=== PATIENT | female | born 1990 | race Caucasian/White ===

== ENCOUNTER 2016-07-27 14:28 | Outpatient (RCR) | payer MEDICARE, MEDICAID ==
[~2016-07-27 14:28] MED LIST: ALDACTONE PO; ALDACTONE25 M1 PO; CARAFATE PO; CLOTRIMAZOLE TR10 MG MM; DIFLUCAN 100MG100 MG PO; ERGOCALCIFER50000 IU PO; GABAPENTIN PO; LIDOCAINE HC20 MG/M1 MM; LOMOTIL1 TAB PO; MAG64 110 MG-181 ECT PO; NATURE'S BLEND F1 MG PO; NEXIUM ORA40 MG/Pack PO; PHARMASSURE VI100 MG PO; POTASSIUM CHLO20 ME3 PO; PREVACID SOLUTA30 M2 SL; PRILOSEC 20MG20 MG PO; Patient's Own Medica PO; THIAMINE HCL100 M1 PO; VITAMIN B-6100 MG PO; Vitamin A PO
[2016-07-27 14:30] VITALS: BP 101/67
[2016-08-04 15:50] VITALS: BP 95/63
[2016-12-14] MEDS ORDERED: PRILOSEC 20MG20 MG PO (10:04)
[2016-12-14] MEDS ORDERED: FOLBIC RF 2 MG-1 TAB PO (10:04)
[2016-12-14] MEDS ORDERED: KLONOPIN 1MG1 MG PO (10:05)
== END 2016-10-25 | disposition home or self-care (01) ==
LOC: AMSURD 14:28
DX: K90.89 Other intestinal malabsorption (principal); E87.6 Hypokalemia
CPT/HCPCS: J1644

== ENCOUNTER → 2016-10-13 | Outpatient (CLI) | payer MEDICARE, MEDICAID ==
[~2016-10-13] MED LIST changes: +ALPRAZOLAM ER0.5 MG PO; +CIPRO500 M1 PO; +DEXTROAMPH SACC10 M1 PO; +FOLBIC RF 2 MG-1 TAB PO; +KLONOPIN 1MG1 MG PO; +KLOR-CON/EF25 MEQ PO; +SERTRALINE HYDR50 MG PO; +ZOLPIDEM TART10 MG PO
== END ==
LOC: RAD 16:22
DX: M54.5 Low back pain (principal); M51.36 Other intervertebral disc degeneration, lumbar region

== ENCOUNTER 2016-12-14 10:07 | Emergency (ER) | payer MEDICARE, MEDICAID ==
[~2016-12-14 10:07] MED LIST changes: -ALPRAZOLAM ER0.5 MG PO; -CIPRO500 M1 PO; -DEXTROAMPH SACC10 M1 PO; -KLOR-CON/EF25 MEQ PO; -SERTRALINE HYDR50 MG PO; -ZOLPIDEM TART10 MG PO
[2016-12-14] MEDS ORDERED: KLOR-CON/EF25 MEQ PO (10:08)
[2016-12-14] MEDS ORDERED: DEXTROAMPH SACC10 M1 PO (10:09)
[2016-12-14] MEDS ORDERED: SERTRALINE HYDR50 MG PO (10:09)
[2016-12-14] MEDS ORDERED: ZOLPIDEM TART10 MG PO (10:09)
[2016-12-14] MEDS ORDERED: ALPRAZOLAM ER0.5 MG PO (10:09)
[2016-12-14] MEDS ORDERED: CIPRO500 M1 PO (12:11)
== END 2016-12-14 12:21 | disposition home or self-care (01) ==
LOC: ED 10:07
DX: N20.0 Calculus of kidney (principal); N30.91 Cystitis, unspecified with hematuria
CPT/HCPCS: J1200; J1885; J2405; J7030; Q9967

== ENCOUNTER → 2017-03-11 | Outpatient (CLI) | payer MEDICARE, MEDICAID ==
[~2017-03-11] VITALS: Ht 175.3 cm; Wt 87.3 kg
[~2017-03-11] MED LIST changes: +ALPRAZOLAM ER0.5 MG PO; +CIPRO500 M1 PO; +DEXTROAMPH SACC10 M1 PO; +KLOR-CON/EF25 MEQ PO; +SERTRALINE HYDR50 MG PO; +ZOLPIDEM TART10 MG PO
[2017-03-11 15:20] VITALS: BP 97/54
[2017-03-11 15:38] VITALS: BP 97/54
[2017-03-11 16:57] VITALS: BP 83/52
== END ==
LOC: LAB 12:54 → AMSURD 12:54
DX: E87.6 Hypokalemia (principal); K90.89 Other intestinal malabsorption; I95.0 Idiopathic hypotension; Z98.84 Bariatric surgery status; R07.89 Other chest pain; E51.2 Wernicke's encephalopathy
CPT/HCPCS: J0834

== ENCOUNTER → 2017-08-23 | Outpatient (CLI) | payer MEDICARE, MEDICAID ==
[2017-03-11 16:57] VITALS: BP 83/52
== END ==
LOC: RAD 16:48
DX: M21.6X2 Other acquired deformities of left foot (principal); M19.072 Primary osteoarthritis, left ankle and foot; Z87.828 Personal history of other (healed) physical injury and trauma

== ENCOUNTER → 2017-11-01 | Outpatient (CLI) | payer MEDICARE, MEDICAID ==
[2017-03-11 16:57] VITALS: BP 83/52
[2017-11-01 14:25] LABS: BUN/CREATININE RATIO 17.3 (6.0-26.0); CALCIUM 8.4 mg/dL (8.4-10.2); POTASSIUM 3.6 mmol/L (3.6-5.0)
== END ==
LOC: LAB 14:03
PROVIDERS: Physician Assistant
DX: R19.7 Diarrhea, unspecified (principal); R07.89 Other chest pain; K90.89 Other intestinal malabsorption; E87.6 Hypokalemia; Z98.84 Bariatric surgery status

== ENCOUNTER 2017-11-05 16:23 | Emergency (ER) | payer MEDICARE, MEDICAID ==
[~2017-11-05] VITALS: Ht 172.7 cm; Wt 96.4 kg
[2017-11-05] MEDS ORDERED: AMPHETAMINE SAL20 M1 PO (16:32)
[2017-11-05] MEDS ORDERED: VENLAFAXINE H37.5 M4 PO (16:32)
[2017-11-05 17:21] LABS: EOS % 0.2 % (1.0-5.0); HEMATOCRIT 40.6 % (37.0-47.0); LYMPH# 1.9 (1.50-4.00); MEAN CELL VOLUME 101 fl (78-100); MEAN CORPUSCULAR HEMOGLOBIN 32 pg (27-31); MEAN CORPUSCULAR HGB CONC 32 g/dL (33-37); MEAN PLATELET VOLUME 9.9 fl (7.4-10.4); MONO # 0.3 (0.20-0.80); NEU # 3.1 (1.40-6.50); PLATELET COUNT 233 K/mm3 (130-400); RED BLOOD COUNT 4.02 M/mm3 (4.10-5.30); RED CELL DISTRIBUTION WIDTH 13.7 % (11.5-14.5); WHITE BLOOD COUNT 5.4 K/mm3 (4.8-10.8)
[2017-11-05 17:36] LABS: ALBUMIN 3.6 g/dL (3.5-5.0); BUN/CREATININE RATIO 19.5 (6.0-26.0); CALCIUM 8.6 mg/dL (8.4-10.2); POTASSIUM 3.9 mmol/L (3.6-5.0); TOTAL PROTEIN 7.3 g/dL (6.3-8.2)
[2017-11-05 18:26] LABS: URINE APPEARANCE HAZY; URINE BILIRUBIN NEGATIVE (NEGATIVE); URINE BLOOD NEGATIVE (NEGATIVE); URINE COLOR YELLOW; URINE GLUCOSE NEGATIVE (NEGATIVE); URINE KETONE NEGATIVE (NEGATIVE); URINE LEUKOCYTE ESTERASE NEGATIVE (NEGATIVE); URINE NITRATE NEGATIVE (NEGATIVE); URINE PROTEIN(semi-quant) NEGATIVE (NEGATIVE); URINE UROBILINOGEN NORMAL (NORMAL); URINE WBC 0-1 /hpf (0-3)
[2017-11-05 19:03] VITALS: BP 120/86
== END 2017-11-05 18:56 | disposition home or self-care (01) ==
LOC: ED 16:23
PROVIDERS: Physician Assistant
DX: R11.2 Nausea with vomiting, unspecified (principal); K90.9 Intestinal malabsorption, unspecified; Z98.84 Bariatric surgery status; F17.200 Nicotine dependence, unspecified, uncomplicated

== ENCOUNTER → 2017-11-18 | Outpatient (CLI) | payer MEDICARE, MEDICAID ==
[2017-11-05 19:03] VITALS: BP 120/86
[~2017-11-18] MED LIST changes: +AMPHETAMINE SAL20 M1 PO; +VENLAFAXINE H37.5 M4 PO
== END ==
LOC: LAB 13:03
DX: K90.89 Other intestinal malabsorption (principal); E87.6 Hypokalemia; Z98.84 Bariatric surgery status

== ENCOUNTER 2017-12-29 14:37 | Emergency (ER) | payer MEDICARE, MEDICAID ==
[~2017-12-29] VITALS: Ht 172.7 cm; Wt 97.7 kg
[2017-12-29] MEDS ORDERED: GOOD NEIGHBOR P1 T32 PO (14:50)
[2017-12-29] MEDS ORDERED: B COMPLEX1 EACH (14:51)
[2017-12-29 15:44] LABS: EOS % 0.6 % (1.0-5.0); HEMATOCRIT 37.2 % (37.0-47.0); HEMOGLOBIN 12.5 g/dL (12.5-16.0); MEAN CELL VOLUME 99 fl (78-100); MEAN CORPUSCULAR HEMOGLOBIN 33 pg (27-31); MEAN CORPUSCULAR HGB CONC 34 g/dL (33-37); MEAN PLATELET VOLUME 10.3 fl (7.4-10.4); MONO # 0.3 (0.20-0.80); NEU # 2.7 (1.40-6.50); PLATELET COUNT 256 K/mm3 (130-400); RED BLOOD COUNT 3.76 M/mm3 (4.10-5.30); RED CELL DISTRIBUTION WIDTH 13.7 % (11.5-14.5); WHITE BLOOD COUNT 5.1 K/mm3 (4.8-10.8)
[2017-12-29 15:53] LABS: ALBUMIN 3.5 g/dL (3.5-5.0); BUN/CREATININE RATIO 16.9 (6.0-26.0); CALCIUM 8.7 mg/dL (8.4-10.2); POTASSIUM 3.6 mmol/L (3.6-5.0); TOTAL BILIRUBIN 0.6 mg/dL (0.2-1.3); TOTAL PROTEIN 7.4 g/dL (6.3-8.2)
[2017-12-29 16:29] LABS: PH-URINE 5.5 (5.0 - 8.0); URINE APPEARANCE HAZY; URINE BILIRUBIN NEGATIVE (NEGATIVE); URINE BLOOD NEGATIVE (NEGATIVE); URINE COLOR YELLOW; URINE GLUCOSE NEGATIVE (NEGATIVE); URINE KETONE NEGATIVE (NEGATIVE); URINE LEUKOCYTE ESTERASE NEGATIVE (NEGATIVE); URINE NITRATE NEGATIVE (NEGATIVE); URINE PROTEIN(semi-quant) NEGATIVE (NEGATIVE); URINE UROBILINOGEN NORMAL (NORMAL)
[2017-12-29 16:31] LABS: URINE MUCUS PRESENT (NOT PRESENT)
[2017-12-29] MEDS ORDERED: OMEPRAZOLE40 MG PO (17:02)
[2017-12-29 19:09] VITALS: BP 100/71
== END 2017-12-29 19:15 | disposition home or self-care (01) ==
LOC: ED 14:37
PROVIDERS: Nurse Practitioner
DX: R10.12 Left upper quadrant pain (principal); G89.29 Other chronic pain; Z86.14 Personal history of Methicillin resistant Staphylococcus aureus infection; Z98.84 Bariatric surgery status; F17.200 Nicotine dependence, unspecified, uncomplicated; K21.9 Gastro-esophageal reflux disease without esophagitis; F32.9 Major depressive disorder, single episode, unspecified; F41.9 Anxiety disorder, unspecified; F90.9 Attention-deficit hyperactivity disorder, unspecified type; Z88.8 Allergy status to other drugs, medicaments and biological substances
CPT/HCPCS: J2405; J3010; J7030; Q9967

== ENCOUNTER → 2018-02-09 | Outpatient (CLI) | payer MEDICARE, MEDICAID ==
[~2018-02-09] MED LIST changes: +B COMPLEX1 EACH; +GOOD NEIGHBOR P1 T32 PO; +OMEPRAZOLE40 MG PO
== END ==
LOC: LAB 09:39
DX: Z34.90 Encounter for supervision of normal pregnancy, unspecified, unspecified trimester (principal)

== ENCOUNTER 2018-09-05 12:04 | Emergency (ER) | payer MEDICARE, MEDICAID ==
[~2018-09-05] VITALS: Ht 175.3 cm; Wt 113.6 kg
[2018-09-05] MEDS ORDERED: DULOXETINE30 MG PO (12:22)
[2018-09-05] MEDS ORDERED: DULOXETINE60 MG PO (12:22)
[2018-09-05] MEDS ORDERED: CIPRO 500MG TA500 MG PO (12:22)
[2018-09-05] MEDS ORDERED: ARIPIPRAZOLE2 MG PO (12:22)
[2018-09-05 12:45] LABS: EOS % 0.1 % (1.0-5.0); HEMATOCRIT 38.4 % (37.0-47.0); HEMOGLOBIN 12.5 g/dL (12.5-16.0); LYMPH# 1.8 (1.50-4.00); MEAN CELL VOLUME 96 fl (78-100); MEAN CORPUSCULAR HEMOGLOBIN 31 pg (27-31); MEAN CORPUSCULAR HGB CONC 33 g/dL (33-37); MEAN PLATELET VOLUME 9.9 fl (7.4-10.4); MONO # 0.6 (0.20-0.80); NEU # 4.9 (1.40-6.50); PLATELET COUNT 274 K/mm3 (130-400); RED BLOOD COUNT 4.01 M/mm3 (4.10-5.30); RED CELL DISTRIBUTION WIDTH 15.2 % (11.5-14.5); WHITE BLOOD COUNT 7.3 K/mm3 (4.8-10.8)
[2018-09-05 12:57] LABS: ALBUMIN 3.8 g/dL (3.5-5.0); CALCIUM 8.1 mg/dL (8.4-10.2); POTASSIUM 3.6 mmol/L (3.6-5.0); TOTAL BILIRUBIN 1.5 mg/dL (0.2-1.3); TOTAL PROTEIN 7.1 g/dL (6.3-8.2)
[2018-09-05 14:03] LABS: URINE APPEARANCE HAZY; URINE COLOR YELLOW
[2018-09-05 14:04] LABS: PH-URINE 6.5 (5.0 - 8.0); URINE BILIRUBIN NEGATIVE (NEGATIVE); URINE BLOOD NEGATIVE (NEGATIVE); URINE GLUCOSE NEGATIVE (NEGATIVE); URINE KETONE NEGATIVE (NEGATIVE); URINE LEUKOCYTE ESTERASE NEGATIVE (NEGATIVE); URINE MUCUS PRESENT (NOT PRESENT); URINE NITRATE NEGATIVE (NEGATIVE); URINE PROTEIN(semi-quant) NEGATIVE (NEGATIVE); URINE UROBILINOGEN NORMAL (NORMAL)
[2018-09-05] MEDS ORDERED: PHENERGAN 25 TA25 MG PO (15:28)
[2018-09-05 16:39] VITALS: BP 124/57
== END 2018-09-05 15:30 | disposition home or self-care (01) ==
LOC: ED 12:04
PROVIDERS: Nurse Practitioner Primary Care
DX: R11.2 Nausea with vomiting, unspecified (principal); R10.13 Epigastric pain; R10.11 Right upper quadrant pain; R10.12 Left upper quadrant pain; R53.81 Other malaise; R46.0 Very low level of personal hygiene; K21.9 Gastro-esophageal reflux disease without esophagitis; F41.9 Anxiety disorder, unspecified; Z98.84 Bariatric surgery status; Z79.899 Other long term (current) drug therapy; Z97.5 Presence of (intrauterine) contraceptive device
CPT/HCPCS: J2405; J2550; J7030

== ENCOUNTER → 2018-09-13 | Day surgery (SDC) | payer MEDICARE, MEDICAID ==
[2018-09-05 16:39] VITALS: BP 124/57
[~2018-09-13] MED LIST changes: +ARIPIPRAZOLE2 MG PO; +CIPRO 500MG TA500 MG PO; +DULOXETINE30 MG PO; +DULOXETINE60 MG PO; +PHENERGAN 25 TA25 MG PO
== END ==
LOC: MSO 08:57
DX: K91.89 Other postprocedural complications and disorders of digestive system (principal); Z98.84 Bariatric surgery status; J45.909 Unspecified asthma, uncomplicated; F17.210 Nicotine dependence, cigarettes, uncomplicated; G47.33 Obstructive sleep apnea (adult) (pediatric); Z79.899 Other long term (current) drug therapy; F41.9 Anxiety disorder, unspecified
CPT/HCPCS: 00731; A4649; J2704; J7120

== ENCOUNTER → 2018-11-17 | Outpatient (CLI) | payer MEDICARE, MEDICAID ==
[2018-11-17 16:29] LABS: URINE APPEARANCE HAZY; URINE BILIRUBIN NEGATIVE (NEGATIVE); URINE BLOOD TRACE (NEGATIVE); URINE COLOR YELLOW; URINE GLUCOSE NEGATIVE (NEGATIVE); URINE KETONE NEGATIVE (NEGATIVE); URINE LEUKOCYTE ESTERASE 1+ (NEGATIVE); URINE NITRATE POSITIVE (NEGATIVE); URINE PROTEIN(semi-quant) TRACE mg/dL (NEGATIVE); URINE UROBILINOGEN NORMAL (NORMAL); URINE WBC 31-50 /hpf (0-3)
== END ==
LOC: LAB 16:06
PROVIDERS: Internal Medicine
DX: N30.00 Acute cystitis without hematuria (principal)

== ENCOUNTER 2018-12-17 13:29 | Emergency (ER) | payer MEDICARE, MEDICAID ==
[~2018-12-17] VITALS: Ht 175.3 cm; Wt 113.6 kg
[2018-12-17 14:19] LABS: EOS % 0.4 % (1.0-5.0); HEMATOCRIT 40.8 % (37.0-47.0); LYMPH# 1.5 (1.50-4.00); MEAN CELL VOLUME 102 fl (78-100); MEAN CORPUSCULAR HEMOGLOBIN 32 pg (27-31); MEAN CORPUSCULAR HGB CONC 32 g/dL (33-37); MEAN PLATELET VOLUME 9.8 fl (7.4-10.4); MONO # 0.4 (0.20-0.80); NEU # 3.5 (1.40-6.50); PLATELET COUNT 238 K/mm3 (130-400); RED BLOOD COUNT 4.01 M/mm3 (4.10-5.30); WHITE BLOOD COUNT 5.4 K/mm3 (4.8-10.8)
[2018-12-17 14:23] LABS: RED CELL DISTRIBUTION WIDTH 19.7 % (11.5-14.5)
[2018-12-17 14:30] LABS: ALBUMIN 3.8 g/dL (3.5-5.0); CALCIUM 8.6 mg/dL (8.4-10.2); POTASSIUM 3.3 mmol/L (3.6-5.0); TOTAL BILIRUBIN 1.4 mg/dL (0.2-1.3); TOTAL PROTEIN 7.1 g/dL (6.3-8.2)
[2018-12-17] MEDS ORDERED: ZOFRAN ODT4 MG PO (16:54)
[2018-12-17 17:12] VITALS: BP 124/75
== END 2018-12-17 17:12 | disposition home or self-care (01) ==
LOC: ED 13:29
PROVIDERS: Family Medicine
DX: R11.2 Nausea with vomiting, unspecified (principal); E87.6 Hypokalemia; R19.7 Diarrhea, unspecified; F32.9 Major depressive disorder, single episode, unspecified; F98.8 Other specified behavioral and emotional disorders with onset usually occurring in childhood and adolescence; F17.210 Nicotine dependence, cigarettes, uncomplicated; Z98.84 Bariatric surgery status; Z90.49 Acquired absence of other specified parts of digestive tract
CPT/HCPCS: J3480; J7030

== ENCOUNTER → 2018-12-26 | Outpatient (CLI) | payer MEDICARE, MEDICAID ==
[2018-12-17 17:12] VITALS: BP 124/75
[~2018-12-26] MED LIST changes: +ZOFRAN ODT4 MG PO
[2018-12-26 15:43] LABS: EOS % 0.3 % (1.0-5.0); HEMATOCRIT 41.1 % (37.0-47.0); HEMOGLOBIN 13.5 g/dL (12.5-16.0); LYMPH# 1.9 (1.50-4.00); MEAN CELL VOLUME 100 fl (78-100); MEAN CORPUSCULAR HEMOGLOBIN 33 pg (27-31); MEAN CORPUSCULAR HGB CONC 33 g/dL (33-37); MEAN PLATELET VOLUME 9.7 fl (7.4-10.4); MONO # 0.4 (0.20-0.80); NEU # 3.9 (1.40-6.50); PLATELET COUNT 293 K/mm3 (130-400); WHITE BLOOD COUNT 6.3 K/mm3 (4.8-10.8)
[2018-12-26 15:46] LABS: RED CELL DISTRIBUTION WIDTH 18.6 % (11.5-14.5)
[2018-12-26 16:10] LABS: CALCIUM 8.7 mg/dL (8.4-10.2); POTASSIUM 3.4 mmol/L (3.6-5.0); TOTAL PROTEIN 7.5 g/dL (6.3-8.2)
[2018-12-26 18:07] LABS: PH-URINE 5.5 (5.0 - 8.0); URINE APPEARANCE HAZY; URINE BILIRUBIN NEGATIVE (NEGATIVE); URINE COLOR YELLOW; URINE GLUCOSE NEGATIVE (NEGATIVE); URINE KETONE NEGATIVE (NEGATIVE); URINE NITRATE NEGATIVE (NEGATIVE); URINE PROTEIN(semi-quant) TRACE mg/dL (NEGATIVE); URINE UROBILINOGEN NORMAL (NORMAL)
[2018-12-26 18:08] LABS: URINE BLOOD 250 ery/uL (NEGATIVE); URINE LEUKOCYTE ESTERASE TRACE (NEGATIVE)
[2018-12-26 23:30] LABS: PTH,INTACT 143.5 pg/mL (6.6-88.9)
[2018-12-30 12:16] LABS: VITAMIN B1 128 nmol/L (70-180)
[2019-01-01 05:19] LABS: VITAMIN A 51.2 mcg/dL (())
== END ==
LOC: LAB 15:19
PROVIDERS: Internal Medicine
DX: E87.6 Hypokalemia (principal); K90.9 Intestinal malabsorption, unspecified; Z98.84 Bariatric surgery status; R07.89 Other chest pain; N30.00 Acute cystitis without hematuria; N39.0 Urinary tract infection, site not specified

== ENCOUNTER → 2019-04-13 | Outpatient (CLI) | payer MEDICARE, MEDICAID | LOC: CARDREHAB 10:21 → CARDLAB 16:19 | DX: G47.8 Other sleep disorders (principal); R53.83 Other fatigue | CPT/HCPCS: G0399 ==

== ENCOUNTER → 2019-09-01 | Outpatient (CLI) | payer MEDICARE, MEDICAID ==
[2019-09-01 15:06] LABS: EOS % 0.9 % (1.0-5.0); HEMATOCRIT 43.4 % (37.0-47.0); HEMOGLOBIN 14.6 g/dL (12.5-16.0); LYMPH# 1.8 (1.50-4.00); MEAN CELL VOLUME 109 fl (78-100); MEAN CORPUSCULAR HGB CONC 34 g/dL (33-37); MEAN PLATELET VOLUME 10.1 fl (7.4-10.4); MONO # 0.4 (0.20-0.80); NEU # 2.1 (1.40-6.50); PLATELET COUNT 205 K/mm3 (130-400); RED BLOOD COUNT 3.99 M/mm3 (4.10-5.30); RED CELL DISTRIBUTION WIDTH 12.6 % (11.5-14.5); WHITE BLOOD COUNT 4.4 K/mm3 (4.8-10.8)
[2019-09-01 15:11] LABS: ALBUMIN 3.7 g/dL (3.5-5.0); POTASSIUM 3.1 mmol/L (3.5-5.1)
[2019-09-01 15:12] LABS: CALCIUM 8.8 mg/dL (8.3-10.5)
[2019-09-01 15:15] LABS: TOTAL BILIRUBIN 0.7 mg/dL (0.2-1.2)
[2019-09-01 15:20] LABS: MAGNESIUM 1.72 mg/dL (1.60-2.60)
[2019-09-01 15:58] LABS: MEAN CORPUSCULAR HEMOGLOBIN 37 pg (27-31)
== END ==
LOC: LAB 14:35
PROVIDERS: Internal Medicine
DX: E87.6 Hypokalemia (principal); K90.9 Intestinal malabsorption, unspecified; Z98.84 Bariatric surgery status

== ENCOUNTER → 2019-11-27 | Outpatient (CLI) | payer MEDICARE, MEDICAID | LOC: RAD 15:54 | DX: M54.6 Pain in thoracic spine (principal); M54.5 Low back pain ==

== ENCOUNTER → 2020-01-29 | Outpatient (CLI) | payer MEDICARE, MEDICAID | LOC: RAD 10:39 | DX: J34.1 Cyst and mucocele of nose and nasal sinus (principal); K76.0 Fatty (change of) liver, not elsewhere classified; Z98.890 Other specified postprocedural states | CPT/HCPCS: Q9967 ==

== ENCOUNTER → 2020-05-01 | Outpatient (CLI) | payer MEDICARE, MEDICAID | LOC: LAB 11:26 | DX: J02.9 Acute pharyngitis, unspecified (principal); M79.10 Myalgia, unspecified site; R63.0 Anorexia; R11.2 Nausea with vomiting, unspecified ==

== ENCOUNTER → 2020-07-01 | Outpatient (CLI) | payer MEDICARE, MEDICAID | LOC: LAB 17:59 | DX: J02.9 Acute pharyngitis, unspecified (principal); J34.89 Other specified disorders of nose and nasal sinuses; H57.89 Other specified disorders of eye and adnexa; R43.8 Other disturbances of smell and taste; R09.81 Nasal congestion; R53.83 Other fatigue; R19.7 Diarrhea, unspecified; Z20.828 Contact with and (suspected) exposure to other viral communicable diseases ==

== ENCOUNTER → 2021-01-28 | Outpatient (CLI) | payer MEDICARE, MEDICAID ==
[~2021-01-28] MED LIST changes: +ADVAIR DISKUS1 DS2 IH; +ALDACTONE 25MG25 MG PO; +ALDACTONE50 M1 PO; -ALPRAZOLAM ER0.5 MG PO; +ALPRAZOLAM ER1 MG PO; +ALPRAZOLAM0.5 MG PO; +CALCITRIOL0.5 MCG PO; +CELEBREX 200MG200 MG PO; +CYANOCOBAL1000 MCG/1 IM; +CYCLOBENZAPRINE10 M1 PO; +DAILY-VITE1 EACH PO; +DELTA D310 MCG; +EFFER-K20 MEQ PO; +FLUTICASON0.05 MG/AC NS; +FOLIC ACID1 MG PO; +LEVOCETIRIZINE D5 MG PO; +METOCLOPRAMIDE10 M5 PO; +NYSTOP POWDER15 GM TP; +ONDANSETRON ODT8 MG PO; +PRISTIQ50 M1 PO; +PROAIR HFA0.09 MG/AC IH; +PROZAC20 M1 PO; +REGLAN5 M1 PO; +REMERON15 MG PO; +SINGULAIR 110 MG/TAB PO; +VITAMIN D210 MCG; +[UNRECOGNIZED DRUG - OTHER] PO
[2021-01-28 16:55] VITALS: BP 130/88
[2021-01-28 17:11] LABS: EOS % 0.2 % (1.0-5.0); HEMATOCRIT 44.6 % (37.0-47.0); HEMOGLOBIN 15.6 g/dL (12.5-16.0); LYMPH# 1.5 (1.50-4.00); MEAN CELL VOLUME 108 fl (78-100); MEAN CORPUSCULAR HGB CONC 35 g/dL (33-37); MEAN PLATELET VOLUME 10.2 fl (7.4-10.4); MONO # 0.4 (0.20-0.80); PLATELET COUNT 217 K/mm3 (130-400); RED BLOOD COUNT 4.14 M/mm3 (4.10-5.30); RED CELL DISTRIBUTION WIDTH 13.2 % (11.5-14.5); WHITE BLOOD COUNT 5.8 K/mm3 (4.8-10.8)
[2021-01-28 17:18] LABS: ALBUMIN 3.5 g/dL (3.5-5.0)
[2021-01-28 17:19] LABS: POTASSIUM 3.7 mmol/L (3.5-5.1)
[2021-01-28 17:20] LABS: CALCIUM 8.4 mg/dL (8.3-10.5)
[2021-01-28 17:21] LABS: TOTAL PROTEIN 7.7 g/dL (6.4-8.3)
[2021-01-28 17:23] LABS: TOTAL BILIRUBIN 1.3 mg/dL (0.2-1.2)
[2021-01-28 17:27] LABS: MAGNESIUM 1.65 mg/dL (1.60-2.60)
[2021-01-28 17:33] LABS: MEAN CORPUSCULAR HEMOGLOBIN 38 pg (27-31)
[2021-01-28 19:15] VITALS: BP 125/88
[2021-01-31 14:30] LABS: VITAMIN A 26.9 mcg/dL (())
[2021-02-01 08:41] LABS: VITAMIN B1 97 nmol/L (70-180)
== END ==
LOC: AMSURD 16:18
PROVIDERS: Internal Medicine
DX: K90.9 Intestinal malabsorption, unspecified (principal); R73.03 Prediabetes
CPT/HCPCS: J7030

== ENCOUNTER → 2021-03-25 | Outpatient (CLI) | payer MEDICARE, MEDICAID ==
[2021-03-25 16:28] LABS: BASO # 0.01 (0.02-0.10); EOS # 0.03 (0.04-0.40); EOS % 0.7 % (1.0-5.0); HEMATOCRIT 44.1 % (37.0-47.0); HEMOGLOBIN 14.7 g/dL (12.5-16.0); LYMPH# 1.23 (1.50-4.00); MEAN CELL VOLUME 113 fl (78-100); MEAN CORPUSCULAR HEMOGLOBIN 38 pg (27-31); MEAN CORPUSCULAR HGB CONC 33 g/dL (33-37); MEAN PLATELET VOLUME 10.3 fl (7.4-10.4); MONO # 0.27 (0.20-0.80); NEU # 2.95 (1.40-6.50); PLATELET COUNT 272 K/mm3 (130-400); RED BLOOD COUNT 3.92 M/mm3 (4.10-5.30); RED CELL DISTRIBUTION WIDTH 13.6 % (11.5-14.5); WHITE BLOOD COUNT 4.5 K/mm3 (4.8-10.8)
[2021-03-25 16:39] LABS: POTASSIUM 3.5 mmol/L (3.5-5.1)
[2021-03-25 16:40] LABS: CALCIUM 8.4 mg/dL (8.3-10.5)
[2021-03-25 16:42] LABS: TOTAL PROTEIN 6.9 g/dL (6.4-8.3)
[2021-03-25 16:48] LABS: MAGNESIUM 1.65 mg/dL (1.60-2.60)
[2021-03-25 18:21] LABS: URINE APPEARANCE HAZY; URINE BILIRUBIN NEGATIVE (NEGATIVE); URINE BLOOD TRACE (NEGATIVE); URINE COLOR YELLOW; URINE GLUCOSE NEGATIVE (NEGATIVE); URINE KETONE NEGATIVE (NEGATIVE); URINE LEUKOCYTE ESTERASE NEGATIVE (NEGATIVE); URINE NITRATE NEGATIVE (NEGATIVE); URINE PROTEIN(semi-quant) TRACE mg/dL (NEGATIVE); URINE UROBILINOGEN NORMAL (NORMAL)
[2021-03-25 18:22] LABS: URINE MUCUS PRESENT (NOT PRESENT)
[2021-03-28 09:23] LABS: VITAMIN A 24.2 mcg/dL (())
[2021-03-29 08:29] LABS: VITAMIN B1 101 nmol/L (70-180)
== END ==
LOC: LAB 15:50
PROVIDERS: Internal Medicine
DX: K90.9 Intestinal malabsorption, unspecified (principal); R30.9 Painful micturition, unspecified; R73.03 Prediabetes

== ENCOUNTER → 2021-04-22 | Outpatient (CLI) | payer MEDICARE, MEDICAID ==
[2021-04-22 14:41] LABS: BASO # 0.02 (0.02-0.10); EOS # 0.01 (0.04-0.40); EOS % 0.2 % (1.0-5.0); HEMATOCRIT 43.6 % (37.0-47.0); HEMOGLOBIN 14.8 g/dL (12.5-16.0); LYMPH# 1.28 (1.50-4.00); MEAN CELL VOLUME 113 fl (78-100); MEAN CORPUSCULAR HEMOGLOBIN 38 pg (27-31); MEAN CORPUSCULAR HGB CONC 34 g/dL (33-37); MEAN PLATELET VOLUME 10.3 fl (7.4-10.4); MONO # 0.34 (0.20-0.80); NEU # 3.73 (1.40-6.50); PLATELET COUNT 215 K/mm3 (130-400); RED BLOOD COUNT 3.85 M/mm3 (4.10-5.30); WHITE BLOOD COUNT 5.4 K/mm3 (4.8-10.8)
[2021-04-22 14:50] LABS: ALBUMIN 3.1 g/dL (3.5-5.0)
[2021-04-22 14:51] LABS: CALCIUM 8.4 mg/dL (8.3-10.5)
[2021-04-22 14:53] LABS: TOTAL PROTEIN 7.4 g/dL (6.4-8.3)
[2021-04-22 14:54] LABS: TOTAL BILIRUBIN 0.9 mg/dL (0.2-1.2)
[2021-04-22 14:59] LABS: MAGNESIUM 1.4 mg/dL (1.60-2.60)
[2021-04-22 15:05] LABS: POTASSIUM 2.8 mmol/L (3.5-5.1)
== END ==
LOC: LAB 14:28
PROVIDERS: Internal Medicine
DX: E87.6 Hypokalemia (principal); F33.9 Major depressive disorder, recurrent, unspecified; R30.9 Painful micturition, unspecified

== ENCOUNTER 2021-04-24 11:07 | Inpatient (IN) | payer MEDICARE, MEDICAID ==
[~2021-04-24] VITALS: Ht 172.7 cm; Wt 159.8 kg
[~2021-04-24 11:07] MED LIST changes: -ALDACTONE50 M1 PO; -PRISTIQ50 M1 PO; -[UNRECOGNIZED DRUG - OTHER] PO
[2021-04-24 14:51] LABS: BASO # 0.02 (0.02-0.10); EOS # 0.03 (0.04-0.40); EOS % 0.5 % (1.0-5.0); HEMATOCRIT 42.6 % (37.0-47.0); HEMOGLOBIN 14.4 g/dL (12.5-16.0); MEAN CELL VOLUME 113 fl (78-100); MEAN CORPUSCULAR HEMOGLOBIN 38 pg (27-31); MEAN CORPUSCULAR HGB CONC 34 g/dL (33-37); MEAN PLATELET VOLUME 10.4 fl (7.4-10.4); MONO # 0.43 (0.20-0.80); NEU # 3.25 (1.40-6.50); RED BLOOD COUNT 3.77 M/mm3 (4.10-5.30); RED CELL DISTRIBUTION WIDTH 13.1 % (11.5-14.5); WHITE BLOOD COUNT 5.6 K/mm3 (4.8-10.8)
[2021-04-24 15:02] LABS: CALCIUM 8.4 mg/dL (8.3-10.5)
[2021-04-24 15:09] LABS: MAGNESIUM 1.61 mg/dL (1.60-2.60)
[2021-04-24 15:43] LABS: POTASSIUM 2.7 mmol/L (3.5-5.1)
[2021-04-24 15:53] LABS: ERYTHROCYTE SEDIMENTATION RATE 36 mm/hr (0-20)
[2021-04-24 16:01] LABS: PLATELET COUNT 260 K/mm3 (130-400)
[2021-04-24 17:24] VITALS: BP 104/72
[2021-04-24 20:04] VITALS: BP 118/79
[2021-04-24 22:06] VITALS: BP 108/72
[2021-04-25] VITALS (7 sets, daily range): BP systolic 97–133; BP diastolic 55–94
[2021-04-25 07:57] LABS: CALCIUM 7.8 mg/dL (8.3-10.5)
[2021-04-25 07:59] LABS: POTASSIUM 2.7 mmol/L (3.5-5.1)
[2021-04-25 08:04] LABS: MAGNESIUM 1.85 mg/dL (1.60-2.60)
[2021-04-25 20:44] LABS: CALCIUM 7.9 mg/dL (8.3-10.5)
[2021-04-25 20:55] LABS: POTASSIUM 2.9 mmol/L (3.5-5.1)
[2021-04-26] VITALS (7 sets, daily range): BP systolic 102–122; BP diastolic 55–79
[2021-04-26 08:49] LABS: POTASSIUM 3.4 mmol/L (3.5-5.1)
[2021-04-26 08:50] LABS: CALCIUM 7.7 mg/dL (8.3-10.5)
[2021-04-26 08:57] LABS: MAGNESIUM 1.95 mg/dL (1.60-2.60)
[2021-04-27 02:11] VITALS: BP 97/68
[2021-04-27 06:01] VITALS: BP 137/76
[2021-04-27 07:42] LABS: POTASSIUM 3.7 mmol/L (3.5-5.1); SODIUM 140 mmol/L (136-145)
[2021-04-27 07:44] LABS: CALCIUM 7.7 mg/dL (8.3-10.5); GLUCOSE 100 mg/dL (65-105)
[2021-04-27 07:46] LABS: CARBON DIOXIDE 22 mmol/L (22-29)
[2021-04-27 07:50] LABS: MAGNESIUM 1.84 mg/dL (1.60-2.60)
[2021-04-27 07:58] LABS: HEMOGLOBIN 12.3 g/dL (12.5-16.0)
[2021-04-27 09:30] VITALS: BP 105/72
[2021-04-27 13:52] VITALS: BP 109/74
[2021-04-27 17:54] VITALS: BP 100/60
[2021-04-27 21:57] VITALS: BP 94/64
[2021-04-28 02:05] VITALS: BP 105/71
[2021-04-28 05:54] VITALS: BP 100/69
[2021-04-28 09:26] VITALS: BP 96/68
[2021-04-28] MEDS ORDERED: PRISTIQ50 M1 PO (10:40)
[2021-04-28 10:45] LABS: ALBUMIN 2.9 g/dL (3.5-5.0)
[2021-04-28 10:46] LABS: BASO # 0.01 (0.02-0.10); EOS # 0.04 (0.04-0.40); EOS % 1.2 % (1.0-5.0); HEMATOCRIT 41.9 % (37.0-47.0); HEMOGLOBIN 13.8 g/dL (12.5-16.0); LYMPH# 1.48 (1.50-4.00); MEAN CELL VOLUME 117 fl (78-100); MEAN CORPUSCULAR HEMOGLOBIN 39 pg (27-31); MEAN CORPUSCULAR HGB CONC 33 g/dL (33-37); MEAN PLATELET VOLUME 9.9 fl (7.4-10.4); NEU # 1.63 (1.40-6.50); PLATELET COUNT 245 K/mm3 (130-400); POTASSIUM 3.5 mmol/L (3.5-5.1); RED BLOOD COUNT 3.58 M/mm3 (4.10-5.30); RED CELL DISTRIBUTION WIDTH 13.4 % (11.5-14.5); WHITE BLOOD COUNT 3.5 K/mm3 (4.8-10.8)
[2021-04-28 10:47] LABS: CALCIUM 8.1 mg/dL (8.3-10.5)
[2021-04-28 10:48] LABS: TOTAL PROTEIN 6.8 g/dL (6.4-8.3)
[2021-04-28 10:50] LABS: TOTAL BILIRUBIN 0.8 mg/dL (0.2-1.2)
[2021-04-28 12:51] LABS: URINE WBC 0 /hpf (0-3)
[2021-04-28 14:20] VITALS: BP 104/77
[2021-04-28 16:46] LABS: URINE APPEARANCE HAZY; URINE COLOR YELLOW; URINE GLUCOSE NEGATIVE (NEGATIVE); URINE PROTEIN(semi-quant) TRACE mg/dL (NEGATIVE)
[2021-04-28 16:47] LABS: URINE BILIRUBIN 1+ (NEGATIVE); URINE BLOOD NEGATIVE (NEGATIVE); URINE KETONE NEGATIVE (NEGATIVE); URINE LEUKOCYTE ESTERASE NEGATIVE (NEGATIVE); URINE NITRATE NEGATIVE (NEGATIVE); URINE UROBILINOGEN 4 mg/dL (NORMAL)
[2021-04-28 18:11] VITALS: BP 110/66
[2021-04-28 21:42] VITALS: BP 107/72
[2021-04-29 01:53] VITALS: BP 96/64
[2021-04-29 05:55] VITALS: BP 96/62
[2021-04-29 10:05] VITALS: BP 99/66
== END 2021-04-29 08:07 | disposition swing bed (61) | DRG 641 ==
LOC: MED/SURG 11:07
PROVIDERS: Family Medicine; Nurse Practitioner; ADMIT Internal Medicine
DX: E86.0 Dehydration (principal); Z68.43 Body mass index [BMI] 50.0-59.9, adult; R45.851 Suicidal ideations; K90.9 Intestinal malabsorption, unspecified; E51.2 Wernicke's encephalopathy; F32.9 Major depressive disorder, single episode, unspecified; G47.33 Obstructive sleep apnea (adult) (pediatric); T50.905A Adverse effect of unspecified drugs, medicaments and biological substances, initial encounter; E87.6 Hypokalemia; F41.1 Generalized anxiety disorder; R15.9 Full incontinence of feces; Z20.822 Contact with and (suspected) exposure to COVID-19; E66.01 Morbid (severe) obesity due to excess calories; G43.909 Migraine, unspecified, not intractable, without status migrainosus; Z99.81 Dependence on supplemental oxygen; Z79.891 Long term (current) use of opiate analgesic; Z88.8 Allergy status to other drugs, medicaments and biological substances; Z98.84 Bariatric surgery status
CPT/HCPCS: C9113; J1650; J1756; J3420; J3475; J3480; J7120; Q9967

== ENCOUNTER 2021-04-29 08:00 | Inpatient (IN) | payer MEDICARE, MEDICAID ==
[~2021-04-29] VITALS: Ht 172.7 cm; Wt 160.5 kg
[2021-04-29 08:00] VITALS: BP 96/62
[~2021-04-29 08:00] MED LIST changes: +PRISTIQ50 M1 PO
[2021-04-29 13:01] LABS: POTASSIUM 4.2 mmol/L (3.5-5.1)
[2021-04-29 13:02] LABS: CALCIUM 8.2 mg/dL (8.3-10.5)
[2021-04-29 13:09] LABS: MAGNESIUM 1.83 mg/dL (1.60-2.60)
[2021-04-29 17:46] VITALS: BP 120/85
[2021-04-30 06:24] VITALS: BP 112/77
[2021-04-30 11:10] VITALS: BP 120/76; BP 122/89; BP 161/101
[2021-04-30 13:00] LABS: BASO # 0.01 (0.02-0.10); EOS # 0.02 (0.04-0.40); EOS % 0.5 % (1.0-5.0); MEAN CELL VOLUME 118 fl (78-100); MEAN CORPUSCULAR HEMOGLOBIN 38 pg (27-31); MEAN CORPUSCULAR HGB CONC 33 g/dL (33-37); MEAN PLATELET VOLUME 9.9 fl (7.4-10.4); PLATELET COUNT 245 K/mm3 (130-400); RED BLOOD COUNT 3.65 M/mm3 (4.10-5.30); RED CELL DISTRIBUTION WIDTH 13.5 % (11.5-14.5); WHITE BLOOD COUNT 4.1 K/mm3 (4.8-10.8)
[2021-04-30 13:13] LABS: POTASSIUM 4.1 mmol/L (3.5-5.1)
[2021-04-30 13:14] LABS: CALCIUM 8.6 mg/dL (8.3-10.5)
[2021-04-30 17:20] VITALS: BP 126/88
[2021-05-01 06:08] VITALS: BP 97/66
[2021-05-01 17:14] VITALS: BP 110/76
[2021-05-02 05:50] VITALS: BP 94/57
[2021-05-02 17:13] VITALS: BP 123/87
[2021-05-03 06:22] VITALS: BP 110/73
[2021-05-03 18:20] VITALS: BP 121/65
[2021-05-04 05:43] VITALS: BP 123/80
[2021-05-04 18:08] VITALS: BP 109/76
[2021-05-05 06:07] VITALS: BP 114/79
[2021-05-05 17:10] VITALS: BP 95/71
[2021-05-06 06:18] VITALS: BP 108/76
[2021-05-06 09:45] LABS: BASO # 0.02 (0.02-0.10); EOS # 0.06 (0.04-0.40); EOS % 1.5 % (1.0-5.0); LYMPH# 1.62 (1.50-4.00); MEAN CELL VOLUME 116 fl (78-100); MEAN CORPUSCULAR HEMOGLOBIN 38 pg (27-31); MEAN CORPUSCULAR HGB CONC 33 g/dL (33-37); MONO # 0.33 (0.20-0.80); NEU # 2.02 (1.40-6.50); PLATELET COUNT 215 K/mm3 (130-400); RED CELL DISTRIBUTION WIDTH 12.5 % (11.5-14.5); WHITE BLOOD COUNT 4.1 K/mm3 (4.8-10.8)
[2021-05-06 09:54] LABS: ALBUMIN 3.3 g/dL (3.5-5.0); POTASSIUM 4.3 mmol/L (3.5-5.1)
[2021-05-06 09:55] LABS: CALCIUM 8.8 mg/dL (8.3-10.5)
[2021-05-06 09:56] LABS: TOTAL PROTEIN 7.4 g/dL (6.4-8.3)
[2021-05-06 09:58] LABS: TOTAL BILIRUBIN 1.3 mg/dL (0.2-1.2)
[2021-05-06 10:03] LABS: MAGNESIUM 1.9 mg/dL (1.60-2.60)
[2021-05-06 12:01] LABS: URINE APPEARANCE HAZY; URINE BILIRUBIN NEGATIVE (NEGATIVE); URINE BLOOD NEGATIVE (NEGATIVE); URINE COLOR YELLOW; URINE GLUCOSE NEGATIVE (NEGATIVE); URINE KETONE NEGATIVE (NEGATIVE); URINE LEUKOCYTE ESTERASE NEGATIVE (NEGATIVE); URINE NITRATE NEGATIVE (NEGATIVE); URINE PROTEIN(semi-quant) NEGATIVE (NEGATIVE); URINE UROBILINOGEN NORMAL (NORMAL)
[2021-05-06 17:49] VITALS: BP 105/70
[2021-05-07 05:24] VITALS: BP 100/71
[2021-05-07 17:38] VITALS: BP 96/63
[2021-05-08 06:02] VITALS: BP 97/68
[2021-05-08] MEDS ORDERED: EFFER-K20 MEQ PO (08:24)
[2021-05-08] MEDS ORDERED: [UNRECOGNIZED DRUG - OTHER] PO (08:32)
[2021-05-08] MEDS ORDERED: ALDACTONE50 M1 PO (08:39)
== END 2021-05-08 10:30 | disposition home or self-care (01) | DRG 947 ==
LOC: MED/SURG 08:00 → PACU 21:11 → MED/SURG 05-08 10:30
PROVIDERS: Family Medicine; Physician Assistant; ADMIT Internal Medicine
DX: R53.81 Other malaise (principal); E43 Unspecified severe protein-calorie malnutrition; Z68.43 Body mass index [BMI] 50.0-59.9, adult; K90.9 Intestinal malabsorption, unspecified; E51.11 Dry beriberi; R45.851 Suicidal ideations; K31.1 Adult hypertrophic pyloric stenosis; E87.6 Hypokalemia; E83.42 Hypomagnesemia; F32.9 Major depressive disorder, single episode, unspecified; F41.9 Anxiety disorder, unspecified; G47.33 Obstructive sleep apnea (adult) (pediatric); E86.0 Dehydration; E66.9 Obesity, unspecified; Z98.84 Bariatric surgery status
CPT/HCPCS: J1885

== ENCOUNTER → 2021-05-29 | Outpatient (CLI) | payer MEDICARE, MEDICAID ==
[~2021-05-29] MED LIST changes: +ALDACTONE50 M1 PO; +[UNRECOGNIZED DRUG - OTHER] PO
[2021-05-29 15:37] LABS: BASO # 0.02 (0.02-0.10); EOS # 0.01 (0.04-0.40); EOS % 0.1 % (1.0-5.0); HEMATOCRIT 46.3 % (37.0-47.0); HEMOGLOBIN 15.5 g/dL (12.5-16.0); MEAN CELL VOLUME 111 fl (78-100); MEAN CORPUSCULAR HEMOGLOBIN 37 pg (27-31); MEAN CORPUSCULAR HGB CONC 34 g/dL (33-37); MEAN PLATELET VOLUME 9.8 fl (7.4-10.4); MONO # 0.34 (0.20-0.80); NEU # 4.82 (1.40-6.50); PLATELET COUNT 341 K/mm3 (130-400); RED BLOOD COUNT 4.16 M/mm3 (4.10-5.30); RED CELL DISTRIBUTION WIDTH 11.9 % (11.5-14.5); WHITE BLOOD COUNT 6.9 K/mm3 (4.8-10.8)
[2021-05-29 15:49] LABS: POTASSIUM 3.5 mmol/L (3.5-5.1)
[2021-05-29 15:50] LABS: CALCIUM 8.7 mg/dL (8.3-10.5)
[2021-05-29 15:51] LABS: TOTAL PROTEIN 7.2 g/dL (6.4-8.3)
[2021-05-29 15:53] LABS: TOTAL BILIRUBIN 0.7 mg/dL (0.2-1.2)
[2021-05-29 15:57] LABS: MAGNESIUM 1.51 mg/dL (1.60-2.60)
== END ==
LOC: LAB 15:10
PROVIDERS: Internal Medicine
DX: R73.03 Prediabetes (principal); E61.1 Iron deficiency

== ENCOUNTER → 2022-01-29 | Outpatient (CLI) | payer MEDICARE, MEDICAID ==
[2022-01-29 14:03] LABS: BASO # 0.01 K/mm3 (0.02-0.10); EOS # 0.03 K/mm3 (0.04-0.40); HEMATOCRIT 45.1 % (37.0-47.0); HEMOGLOBIN 14.6 g/dL (12.5-16.0); LYMPH# 1.66 K/mm3 (1.50-4.00); MEAN CELL VOLUME 107 fl (78-100); MEAN CORPUSCULAR HEMOGLOBIN 35 pg (27-31); MEAN CORPUSCULAR HGB CONC 32 g/dL (33-37); MEAN PLATELET VOLUME 10.4 fl (7.4-10.4); MONO # 0.18 K/mm3 (0.20-0.80); NEU # 1.02 K/mm3 (1.40-6.50); PLATELET COUNT 228 K/mm3 (130-400); RED CELL DISTRIBUTION WIDTH 12.2 % (11.5-14.5); WHITE BLOOD COUNT 2.9 K/mm3 (4.8-10.8)
[2022-01-29 14:08] LABS: POTASSIUM 3.3 mmol/L (3.5-5.1)
[2022-01-29 14:09] LABS: ALBUMIN 3.2 g/dL (3.5-5.0)
[2022-01-29 14:10] LABS: CALCIUM 8.8 mg/dL (8.3-10.5)
[2022-01-29 14:11] LABS: TOTAL PROTEIN 6.4 g/dL (6.4-8.3)
[2022-01-29 14:13] LABS: TOTAL BILIRUBIN 1.1 mg/dL (0.2-1.2)
[2022-01-29 14:18] LABS: MAGNESIUM 1.73 mg/dL (1.60-2.60)
[2022-02-02 10:27] LABS: VITAMIN A 16.8 mcg/dL (())
[2022-02-02 20:06] LABS: VITAMIN E 5.7 mg/L (())
[2022-02-03 12:37] LABS: VITAMIN B1 64 nmol/L (70-180)
== END ==
LOC: LAB 13:23
PROVIDERS: Internal Medicine
DX: G47.19 Other hypersomnia (principal); E61.1 Iron deficiency; K90.9 Intestinal malabsorption, unspecified; G47.33 Obstructive sleep apnea (adult) (pediatric); F33.9 Major depressive disorder, recurrent, unspecified; R73.03 Prediabetes; F10.20 Alcohol dependence, uncomplicated

== ENCOUNTER → 2022-03-05 | Outpatient (CLI) | payer MEDICARE, MEDICAID ==
[2022-03-05 16:51] LABS: BASO # 0.01 K/mm3 (0.02-0.10); EOS # 0.02 K/mm3 (0.04-0.40); EOS % 0.5 % (1.0-5.0); HEMATOCRIT 47.1 % (37.0-47.0); LYMPH# 1.61 K/mm3 (1.50-4.00); MEAN CELL VOLUME 104 fl (78-100); MEAN CORPUSCULAR HEMOGLOBIN 35 pg (27-31); MEAN CORPUSCULAR HGB CONC 34 g/dL (33-37); MONO # 0.28 K/mm3 (0.20-0.80); NEU # 2.29 K/mm3 (1.40-6.50); PLATELET COUNT 216 K/mm3 (130-400); RED BLOOD COUNT 4.54 M/mm3 (4.10-5.30); RED CELL DISTRIBUTION WIDTH 13.3 % (11.5-14.5); WHITE BLOOD COUNT 4.2 K/mm3 (4.8-10.8)
[2022-03-06 15:25] LABS: FOLATE (FOLIC ACID) 9.1 ng/mL (2.0-20.0)
[2022-03-10 14:08] LABS: VITAMIN E 4.5 mg/L (())
[2022-03-10 14:19] LABS: VITAMIN B1 81 nmol/L (70-180)
[2022-03-11 10:20] LABS: VITAMIN A 21.3 mcg/dL (())
== END ==
LOC: LAB 16:33
PROVIDERS: Internal Medicine
DX: K90.9 Intestinal malabsorption, unspecified (principal)

== ENCOUNTER → 2022-03-16 | Outpatient (CLI) | payer MEDICARE, MEDICAID ==
[~2022-03-16] MED LIST changes: +ELIQUIS5 MG PO; +MINIPRESS1 M1 PO
== END ==
LOC: RAD 12:51
DX: I82.C19 Acute embolism and thrombosis of unspecified internal jugular vein (principal)
CPT/HCPCS: Q9967

== ENCOUNTER → 2022-03-16 | Outpatient (CLI) | payer MEDICARE, MEDICAID ==
[~2022-03-16] VITALS: Ht 172.7 cm; Wt 128.0 kg
[2022-03-16 15:44] LABS: ALBUMIN 3.4 g/dL (3.5-5.0); POTASSIUM 3.6 mmol/L (3.5-5.1)
[2022-03-16 15:45] LABS: CALCIUM 9.1 mg/dL (8.3-10.5)
[2022-03-16 15:47] LABS: TOTAL PROTEIN 7.6 g/dL (6.4-8.3)
[2022-03-16 15:48] LABS: TOTAL BILIRUBIN 2.8 mg/dL (0.2-1.2)
[2022-03-16 15:50] VITALS: BP 119/80
[2022-03-16 15:53] LABS: MAGNESIUM 1.82 mg/dL (1.60-2.60)
== END ==
LOC: AMSURD 15:04
PROVIDERS: Internal Medicine
DX: I82.C19 Acute embolism and thrombosis of unspecified internal jugular vein (principal); E87.6 Hypokalemia; E86.0 Dehydration
CPT/HCPCS: J7030

== ENCOUNTER → 2022-06-04 | Outpatient (CLI) | payer MEDICARE, MEDICAID ==
[2022-06-04 14:44] LABS: BASO # 0.01 K/mm3 (0.02-0.10); EOS # 0.03 K/mm3 (0.04-0.40); EOS % 0.7 % (1.0-5.0); HEMOGLOBIN 13.7 g/dL (12.5-16.0); LYMPH# 1.58 K/mm3 (1.50-4.00); MEAN CELL VOLUME 117 fl (78-100); MEAN CORPUSCULAR HEMOGLOBIN 40 pg (27-31); MEAN CORPUSCULAR HGB CONC 34 g/dL (33-37); MEAN PLATELET VOLUME 9.9 fl (7.4-10.4); MONO # 0.22 K/mm3 (0.20-0.80); NEU # 2.51 K/mm3 (1.40-6.50); PLATELET COUNT 215 K/mm3 (130-400); RED BLOOD COUNT 3.43 M/mm3 (4.10-5.30); RED CELL DISTRIBUTION WIDTH 13.5 % (11.5-14.5); WHITE BLOOD COUNT 4.4 K/mm3 (4.8-10.8)
[2022-06-04 14:51] LABS: POTASSIUM 3.7 mmol/L (3.5-5.1)
[2022-06-04 14:52] LABS: CALCIUM 8.2 mg/dL (8.3-10.5)
[2022-06-04 14:54] LABS: TOTAL PROTEIN 6.6 g/dL (6.4-8.3)
[2022-06-04 14:56] LABS: TOTAL BILIRUBIN 1.2 mg/dL (0.2-1.2)
[2022-06-04 15:00] LABS: MAGNESIUM 2.37 mg/dL (1.60-2.60)
[2022-06-04 22:58] LABS: FOLATE (FOLIC ACID) >20.0 ng/mL (2.0-20.0)
[2022-06-05 00:55] LABS: CALCIUM, IONIZED, SERUM 1.11 mmol/L (1.19-1.41)
[2022-06-08 10:45] LABS: VITAMIN A 30.7 mcg/dL (())
[2022-06-09 15:18] LABS: VITAMIN B1 130 nmol/L (70-180)
[2022-06-09 21:25] LABS: VITAMIN E 5.9 mg/L (())
== END ==
LOC: LAB 13:14 → RAD 13:14
PROVIDERS: Internal Medicine
DX: I82.C19 Acute embolism and thrombosis of unspecified internal jugular vein (principal)
CPT/HCPCS: Q9967

== ENCOUNTER → 2022-11-10 | Outpatient (CLI) | payer MEDICARE, MEDICAID ==
[2022-11-10 16:16] LABS: BASO # 0.02 K/mm3 (0.02-0.10); EOS # 0.04 K/mm3 (0.04-0.40); EOS % 0.8 % (1.0-5.0); HEMATOCRIT 41.1 % (37.0-47.0); HEMOGLOBIN 13.5 g/dL (12.5-16.0); LYMPH# 1.92 K/mm3 (1.50-4.00); MEAN CELL VOLUME 114 fl (78-100); MEAN CORPUSCULAR HEMOGLOBIN 37 pg (27-31); MEAN CORPUSCULAR HGB CONC 33 g/dL (33-37); MEAN PLATELET VOLUME 9.7 fl (7.4-10.4); MONO # 0.31 K/mm3 (0.20-0.80); NEU # 2.96 K/mm3 (1.40-6.50); PLATELET COUNT 284 K/mm3 (130-400); RED BLOOD COUNT 3.61 M/mm3 (4.10-5.30); RED CELL DISTRIBUTION WIDTH 13.1 % (11.5-14.5); WHITE BLOOD COUNT 5.3 K/mm3 (4.8-10.8)
[2022-11-10 16:26] LABS: ALBUMIN 3.4 g/dL (3.5-5.0); POTASSIUM 3.8 mmol/L (3.5-5.1)
[2022-11-10 16:27] LABS: CALCIUM 8.7 mg/dL (8.3-10.5)
[2022-11-10 16:30] LABS: TOTAL BILIRUBIN 0.5 mg/dL (0.2-1.2)
[2022-11-10 16:35] LABS: MAGNESIUM 1.85 mg/dL (1.60-2.60)
[2022-11-10 17:19] LABS: URINE APPEARANCE HAZY; URINE BILIRUBIN NEGATIVE (NEGATIVE); URINE BLOOD NEGATIVE (NEGATIVE); URINE COLOR YELLOW; URINE GLUCOSE NEGATIVE (NEGATIVE); URINE KETONE NEGATIVE (NEGATIVE); URINE LEUKOCYTE ESTERASE TRACE (NEGATIVE); URINE MUCUS PRESENT (NOT PRESENT); URINE NITRATE NEGATIVE (NEGATIVE); URINE PROTEIN(semi-quant) TRACE (NEGATIVE); URINE UROBILINOGEN NORMAL (NORMAL)
[2022-11-11 20:25] LABS: CALCIUM, IONIZED, SERUM 1.14 mmol/L (1.19-1.41)
[2022-11-11 20:36] LABS: FOLATE (FOLIC ACID) >20.0 ng/mL (2.0-20.0)
== END ==
LOC: LAB 16:00
PROVIDERS: Internal Medicine
DX: K90.9 Intestinal malabsorption, unspecified (principal); R73.03 Prediabetes; F10.20 Alcohol dependence, uncomplicated; F33.2 Major depressive disorder, recurrent severe without psychotic features

== ENCOUNTER → 2023-09-06 | Outpatient (CLI) | payer MEDICARE, MEDICAID ==
[~2023-09-06] MED LIST changes: +RITALIN10 M1 PO
== END ==
LOC: RAD 15:35
DX: M79.675 Pain in left toe(s) (principal)

== ENCOUNTER → 2023-10-15 | Outpatient (CLI) | payer MEDICARE, MEDICAID ==
[2023-10-15 16:09] LABS: BASO # 0.01 K/mm3 (0.02-0.10); EOS # 0.03 K/mm3 (0.04-0.40); EOS % 0.5 % (1.0-5.0); HEMATOCRIT 43.8 % (37.0-47.0); HEMOGLOBIN 14.4 g/dL (12.5-16.0); LYMPH# 2.26 K/mm3 (1.50-4.00); MEAN CELL VOLUME 114 fl (78-100); MEAN CORPUSCULAR HEMOGLOBIN 38 pg (27-31); MEAN CORPUSCULAR HGB CONC 33 g/dL (33-37); MEAN PLATELET VOLUME 9.5 fl (7.4-10.4); MONO # 0.35 K/mm3 (0.20-0.80); NEU # 3.78 K/mm3 (1.40-6.50); PLATELET COUNT 304 K/mm3 (130-400); RED BLOOD COUNT 3.84 M/mm3 (4.10-5.30); WHITE BLOOD COUNT 6.4 K/mm3 (4.8-10.8)
[2023-10-15 16:34] LABS: CALCIUM 9.2 mg/dL (8.3-10.5)
[2023-10-15 16:36] LABS: TOTAL PROTEIN 7.8 g/dL (6.4-8.3)
[2023-10-15 16:38] LABS: TOTAL BILIRUBIN 0.7 mg/dL (0.2-1.2)
[2023-10-15 16:42] LABS: MAGNESIUM 2.13 mg/dL (1.60-2.60)
[2023-10-16 19:33] LABS: CALCIUM, IONIZED, SERUM 1.12 mmol/L (1.19-1.41)
[2023-10-17 20:32] LABS: FOLATE (FOLIC ACID) 7.5 ng/mL (2.0-20.0); PTH,INTACT 189.5 pg/mL (8.0-72.0)
== END ==
LOC: LAB 15:37
PROVIDERS: Internal Medicine
DX: E21.1 Secondary hyperparathyroidism, not elsewhere classified (principal); E78.2 Mixed hyperlipidemia; K90.9 Intestinal malabsorption, unspecified; R73.03 Prediabetes

== ENCOUNTER → 2024-01-07 | Outpatient (CLI) | payer MEDICARE, MEDICAID ==
[2024-01-07 16:25] LABS: BASO # 0.02 K/mm3 (0.02-0.10); EOS # 0.01 K/mm3 (0.04-0.40); EOS % 0.2 % (1.0-5.0); HEMATOCRIT 44.6 % (37.0-47.0); HEMOGLOBIN 14.9 g/dL (12.5-16.0); LYMPH# 1.68 K/mm3 (1.50-4.00); MEAN CELL VOLUME 111 fl (78-100); MEAN CORPUSCULAR HEMOGLOBIN 37 pg (27-31); MEAN CORPUSCULAR HGB CONC 33 g/dL (33-37); MEAN PLATELET VOLUME 10.2 fl (7.4-10.4); MONO # 0.25 K/mm3 (0.20-0.80); NEU # 3.01 K/mm3 (1.40-6.50); PLATELET COUNT 243 K/mm3 (130-400); RED BLOOD COUNT 4.01 M/mm3 (4.10-5.30); RED CELL DISTRIBUTION WIDTH 12.3 % (11.5-14.5)
[2024-01-07 16:28] LABS: ALBUMIN 3.6 g/dL (3.5-5.0)
[2024-01-07 16:30] LABS: CALCIUM 8.9 mg/dL (8.3-10.5)
[2024-01-07 16:31] LABS: TOTAL PROTEIN 7.3 g/dL (6.4-8.3)
[2024-01-07 16:33] LABS: TOTAL BILIRUBIN 1.1 mg/dL (0.2-1.2)
[2024-01-07 16:37] LABS: MAGNESIUM 1.97 mg/dL (1.60-2.60)
[2024-01-07 17:03] LABS: PH-URINE 5.5 (5.0 - 8.0); URINE APPEARANCE CLEAR (CLEAR); URINE BILIRUBIN NEGATIVE (NEGATIVE); URINE BLOOD NEGATIVE (NEGATIVE); URINE COLOR YELLOW (YELLOW); URINE GLUCOSE NEGATIVE (NEGATIVE); URINE KETONE TRACE (NEGATIVE); URINE LEUKOCYTE ESTERASE NEGATIVE (NEGATIVE); URINE NITRATE NEGATIVE (NEGATIVE); URINE PROTEIN(semi-quant) NEGATIVE (NEGATIVE)
[2024-01-07 17:05] LABS: URINE MUCUS PRESENT (NOT PRESENT)
[2024-01-07 23:20] LABS: CREATININE OTHER SOURCE 70 mg/dL (63-166)
[2024-01-07 23:48] LABS: FOLATE (FOLIC ACID) 5.5 ng/mL (2.0-20.0)
== END ==
LOC: LAB 15:33
PROVIDERS: Internal Medicine
DX: Z11.4 Encounter for screening for human immunodeficiency virus [HIV] (principal); Z11.59 Encounter for screening for other viral diseases; K90.9 Intestinal malabsorption, unspecified; R73.03 Prediabetes

== ENCOUNTER → 2024-04-14 | Outpatient (CLI) | payer MEDICARE, MEDICAID ==
[2024-04-14 14:54] LABS: BASO # 0.01 K/mm3 (0.02-0.10); EOS # 0.02 K/mm3 (0.04-0.40); EOS % 0.3 % (1.0-5.0); HEMATOCRIT 43.9 % (37.0-47.0); HEMOGLOBIN 14.8 g/dL (12.5-16.0); LYMPH# 1.11 K/mm3 (1.50-4.00); MEAN CELL VOLUME 110 fl (78-100); MEAN CORPUSCULAR HEMOGLOBIN 37 pg (27-31); MEAN CORPUSCULAR HGB CONC 34 g/dL (33-37); MEAN PLATELET VOLUME 9.2 fl (7.4-10.4); MONO # 0.22 K/mm3 (0.20-0.80); NEU # 5.76 K/mm3 (1.40-6.50); PLATELET COUNT 231 K/mm3 (130-400); RED CELL DISTRIBUTION WIDTH 13.9 % (11.5-14.5); WHITE BLOOD COUNT 7.1 K/mm3 (4.8-10.8)
[2024-04-14 14:57] LABS: ALBUMIN 3.7 g/dL (3.5-5.0)
[2024-04-14 14:59] LABS: CALCIUM 9.2 mg/dL (8.3-10.5)
[2024-04-14 15:00] LABS: TOTAL PROTEIN 7.8 g/dL (6.4-8.3)
[2024-04-14 15:02] LABS: TOTAL BILIRUBIN 1.6 mg/dL (0.2-1.2)
[2024-04-14 15:06] LABS: MAGNESIUM 1.93 mg/dL (1.60-2.60)
[2024-04-15 00:32] LABS: FOLATE (FOLIC ACID) 7.2 ng/mL (2.0-20.0)
[2024-04-20 05:38] LABS: VITAMIN B1 113.8 nmol/L (())
[2024-04-22 05:38] LABS: VITAMIN A 27.6 ug/dL (())
== END ==
LOC: LAB 14:23
PROVIDERS: Internal Medicine
DX: R73.03 Prediabetes (principal); K90.9 Intestinal malabsorption, unspecified